=== PATIENT | female | born 1935 | race African-American/Black ===

== ENCOUNTER 2022-12-03 15:51 | Emergency (ER) | payer MEDICAID, MEDICARE ==
[~2022-12-03] VITALS: Ht 162.6 cm; Wt 50.0 kg
[2022-12-03] MEDS ORDERED: ACETAMINOPHEN 500MG TABLET PO ONE (16:30)
[2022-12-03] MEDS ORDERED: ACET-2708 MT (16:56)
[2022-12-03 19:06] VITALS: BP 170/78
== END 2022-12-03 19:32 | disposition home or self-care (01) ==
LOC: ER 15:51
DX: S09.90XA Unspecified injury of head, initial encounter (principal); K08.89 Other specified disorders of teeth and supporting structures; I10 Essential (primary) hypertension; X58.XXXA Exposure to other specified factors, initial encounter; Y93.89 Activity, other specified; Y92.89 Other specified places as the place of occurrence of the external cause; Y99.8 Other external cause status
CPT/HCPCS: 99284